=== PATIENT | female | born 1950 | race Caucasian/White ===

== ENCOUNTER 2016-08-30 09:31 | Day surgery (SDC) | payer MEDICARE ==
--- NOTE | 2016-08-17 14:38 | HP ---
HISTORY AND PHYSICAL: DATE OF ADMISSION: 08/30/16 [facility] CHIEF COMPLAINT: Blurring of vision, right eye. HISTORY OF PRESENT ILLNESS: This 66-year-old white female has had some blurring of her vision of her right eye and is scheduled with Dr. Trent Sahni at [facility] on 08/30/16 for right cataract extraction under local anesthesia with monitored anesthesia care. The patient has had left detached retina in childhood and left cataract previously removed. PAST MEDICAL HISTORY: The patient is under the care of Dr. Patel Pacheco. She has a history of palpitations, hypertension, otherwise generally healthy. PAST SURGICAL HISTORY: Includes a hysterectomy, ovaries were not removed years ago. CURRENT MEDICATIONS: None. ALLERGIES: No known drug allergies. FAMILY HISTORY: Mother, coronary artery disease; multiple MIs, first one at age 54; she had coronary artery bypass graft, at age 87 of complications with her heart. Father, hypertension; he had squamous cell cancer of his cheek and of complications from the cancer at age 84. Brother, hypertension, diverticulosis. Maternal aunt, colon cancer. SOCIAL HISTORY: The patient is and lives in the [facility]. She is retired but cares for her children. She has never used tobacco and does not drink any alcohol. REVIEW OF SYSTEMS: The patient had a Holter monitor recently related to increased palpitations dating back to January of 2016, which showed 4 to 5 beats of SVT on the 24-hour Holter monitor. She states that she has had rare palpitations since the test in January. Otherwise, review of systems is negative to detailed questionings, specifically she denied any dyspnea, cough, chest pain, or edema symptoms. PHYSICAL EXAMINATION GENERAL: This 66-year-old white female is alert, pleasant, and cooperative. She looks younger than her stated age. VITAL SIGNS: Height 5 feet 2 inches, weight 128 pounds, blood pressure 136/80, pulse 76. HEENT: Eyes not examined. Ears normal. Mouth: Tongue in the midline. Teeth in good repair. Pharynx is clear. NECK: Supple. Good range of motion. No adenopathy. Thyroid benign. BACK: Normal curvature. No tenderness noted of the spine or CVA areas. LUNGS: Clear. HEART: Rhythm is regular. Apical pulse 76 beats per minute. ABDOMEN: Flat, active bowel sounds. Abdomen is soft, nontender. No obvious masses or organomegaly. The patient is up-to-date with mammograms and colonoscopies. EXTREMITIES: The patient ambulates independently. Moves all 4 extremities well. Muscle strength equal bilaterally upper and lower extremities. No gross deformities. SKIN: Warm, dry, intact throughout. No cellulitis. No edema. EKG showed normal sinus rhythm within normal limits. IMPRESSION: The patient is medically stable and cleared for her upcoming right cataract surgery with Dr. Trent Sahni. FARZANA CARLOS NP CC: Dr. Sahni; [facility] * [id number]/[facility] #: [id number]/CPS #: [id number] [facility]
--- NOTE | 2016-08-17 14:38 | HP ---
DATE OF ADMISSION: 08/30/2016. ADDENDUM: EKG showed normal sinus rhythm within normal limits. FARZANA CARLOS, THERAPY TECH [id number]/[facility] #: [id number]
[~2016-08-30 09:31] MED LIST: Acetaminophen TAB* 325 MG PO PRN; Buffered Lidocaine 1% SYR 3ML* 3 ML/SYR SYRINGE INTRADERM ONE
[2016-08-30] MEDS ORDERED: Midazolam* 1 MG/ML 5 ML VIAL (5 MG) ONE (10:59)
[2016-08-30] MEDS ORDERED: fentaNYL* 50 MCG/ML 2 ML VIAL (100 MCG VIAL) ONE (10:59)
[2016-08-30 13:27] VITALS: BP 138/90
--- NOTE | 2016-08-31 04:23 | OP ---
DATE OF OPERATION: 08/30/16 - [facility] DATE OF : 52 SURGEON: Trent Sahni MD PREOPERATIVE DIAGNOSIS: Cataract, right eye. POSTOPERATIVE DIAGNOSIS: Cataract, right eye. OPERATIVE PROCEDURE: Phacoemulsification, right eye with IOL. DESCRIPTION OF PROCEDURE: The patient was brought to the operating room after being given 1/2% Alcaine with epinephrine drops in the preoperative area. The eye was prepped and draped in the usual sterile fashion. Sterile drape and eyelid speculum were placed. Again, topical 1/2% Alcaine with epinephrine was given. A paracentesis incision was made at the 9 o'clock position with the No.75 blade. Clear cornea incision 2.2 x 2.2-mm was created at the 12 o'clock position starting at the anterior limbus using the 2.2-mm keratome. The anterior chamber was irrigated with 0.4 mL of 1% non-preservative intracameral lidocaine and filled with DisCoVisc. A capsulorrhexis was completed using the cystotome and the Utrata forceps. Hydrodissection was performed with balanced salt solution. The lens nucleus was removed with the Phacoemulsification handpiece without incident. Cortex was removed with the irrigation-aspiration handpiece. The capsular bag was re-inflated using DisCoVisc and an [id number] implant was inserted with the shooter. The irrigation-aspiration handpiece was used to remove all residual DisCoVisc. The eye was refilled with balanced salt solution and the wound checked and found to be watertight. Topical Maxitrol drops were given. [id number]/[facility] #: [id number] HEALTH SYSTEMSemaj
[2016-08-31] MEDS ORDERED: Phenylephrine 2.5% OPTH.SOL* 2 ML BTL ONE (14:34)
[2016-08-31] MEDS ORDERED: acetaZOLAMIDE TAB* 250 MG ONE (14:34)
[2016-08-31] MEDS ORDERED: Proparacaine 0.5% OPHTH.SOL* 15 ML BTL ONE (14:34)
[2016-08-31] MEDS ORDERED: Cyclopentolate 1% OPTH.SOL* 2 ML BTL ONE (14:34)
[2016-08-31] MEDS ORDERED: Lidocaine 1% MPF* 2 ML VIAL ONE (14:34)
[2016-08-31] MEDS ORDERED: Flurbiprofen 0.03% OPTH.SOL* 2.5 ML BTL ONE (14:34)
[2016-08-31] MEDS ORDERED: Neomycin/Polymy/Dex OPTH.SUSP* MAXITROL 0.1% 5 ML ONE (14:34)
[2016-08-31] MEDS ORDERED: Povidone Iodine 5% OPTH* 30 ML BTL ONE (14:34)
[2016-08-31] MEDS ORDERED: Lidocaine 2% EPI 1:200000 MPF* 20 ML VIAL ONE (14:34)
== END 2016-08-30 13:20 | disposition home or self-care (01) ==
LOC: OREAST 09:31
PROVIDERS: ATTEND Specialist
DX: H25.11 Age-related nuclear cataract, right eye (principal)
CPT/HCPCS: A9270-GY; J2250; J3010; V2632